=== PATIENT | male | born 1980 | race Caucasian/White ===

== ENCOUNTER 2019-10-22 19:14 | Emergency (ER) | payer BC, SELFPAY ==
[~2019-10-22] VITALS: Ht 180.3 cm; Wt 113.4 kg
[2019-10-22 19:15] VITALS: Ht 180.3 cm; Wt 113.4 kg
[2019-10-22 21:40] VITALS: BP 117/68
== END 2019-10-22 21:40 | disposition home or self-care (01) ==
LOC: ED 19:14
DX: J40 Bronchitis, not specified as acute or chronic (principal); E11.9 Type 2 diabetes mellitus without complications; Z91.013 Allergy to seafood; Z20.828 Contact with and (suspected) exposure to other viral communicable diseases
CPT/HCPCS: 82962; Q0092; U0003-CS